=== PATIENT | male | born 1975 | race Two or more races ===

== ENCOUNTER 2018-11-21 23:49 | Emergency (ER) | payer SELFPAY ==
[~2018-11-21] VITALS: Ht 172.7 cm; Wt 82.0 kg
[2018-11-22] MEDS ORDERED: insulin (00:08)
[2018-11-22] MEDS ORDERED: METF500T17 PO (00:08)
--- NOTE | 2018-11-22 00:08 | NUR ---
WILLI ROMERO FROM [facility] [employer] [facility], PER EMT PT'S [id number], PT HAS H/X TYPE 2 DM. B/P-154/98, 96% R/A, HR-90. [employer] AT PT'S BEDSIDE. MONITORS APPLIED, SIDERAILS UP X2, CALL LIGHT WITHIN REACH.
[2018-11-22 00:14] VITALS: BP 149/93
[2018-11-22 00:28] LABS: BASOPHILS % (AUTO) 0 % (0-1); EOSINOPHILS % (AUTO) 0 % (1-7); LYMPHOCYTES % (AUTO) 11 % (22-44); MD NO; MEAN CORPUSCULAR HEMOGLOBIN 28.5 pg (27.5-34.5); MEAN CORPUSCULAR HGB CONC 34.1 g/dL (33.2-36.2); MEAN CORPUSCULAR VOLUME 83.6 fL (81-97); MEAN PLATELET VOLUME 9.4 fL (7.4-10.4); MONOCYTES % (AUTO) 1 % (2-9); NEUTROPHILS # (AUTO) 8.41 x10^3/uL (1.8-6.8); NEUTROPHILS % (AUTO) 88 % (42-75); PLATELET COUNT 263 x10^3/uL (130-400); RED BLOOD COUNT 6.24 x10^6/uL (4.38-5.82); RED CELL DISTRIBUTION WIDTH 12.9 % (9.4-14.8)
--- NOTE | 2018-11-22 00:31 | NUR ---
URINE SAMPLE TAKEN TO LAB
[2018-11-22 00:34] LABS: ALANINE AMINOTRANSFERASE 54 U/L (12-78); ALBUMIN 4.6 g/dL (3.4-5.0); ANION GAP 11 mmol/L (5-15); CALCIUM 9.8 mg/dL (8.5-10.1); CHLORIDE 106 mmol/L (98-107); CREATININE 1.07 mg/dL (0.7-1.3)
[2018-11-22 00:36] LABS: ALKALINE PHOSPHATASE 173 U/L (45-117); BILIRUBIN,TOTAL 0.6 mg/dL (0.2-1.0); TOTAL PROTEIN 8.6 g/dL (6.4-8.2)
[2018-11-22 00:41] LABS: ACETONE, SERUM Negative (Negative)
[2018-11-22] MEDS ORDERED: metFORMIN 500 MG TABLET PO STA (00:45)
[2018-11-22 00:52] LABS: MICROSCOPIC AUTO
[2018-11-22 00:54] LABS: CULTURE INDICATED? NO
== END 2018-11-22 01:13 | disposition home or self-care (01) ==
LOC: ED 11-22 01:07
DX: E11.65 Type 2 diabetes mellitus with hyperglycemia (principal)
CPT/HCPCS: 36415; 80053; 81001; 82010; 82962; 85025; 99283

== ENCOUNTER 2020-07-05 18:31 | Emergency (ER) | payer SELFPAY ==
[~2020-07-05] VITALS: Ht 172.7 cm; Wt 84.8 kg
[~2020-07-05 18:31] MED LIST: METF500T17 PO; insulin
[2020-07-05 19:44] LABS: ANION GAP 8 mmol/L (5-15); CALCIUM 9.6 mg/dL (8.5-10.1); CHLORIDE 97 mmol/L (98-107); CREATININE 1.45 mg/dL (0.7-1.3)
[2020-07-05 19:51] LABS: BASOPHILS % (AUTO) 1 % (0-1); EOSINOPHILS % (AUTO) 1 % (1-7); LYMPHOCYTES % (AUTO) 29 % (22-44); MEAN CORPUSCULAR HEMOGLOBIN 28.6 pg (27.5-34.5); MEAN CORPUSCULAR HGB CONC 34.8 g/dL (33.2-36.2); MEAN PLATELET VOLUME 9.8 fL (7.4-10.4); MONOCYTES % (AUTO) 7 % (2-9); NEUTROPHILS % (AUTO) 62 % (42-75); PLATELET COUNT 261 x10^3/uL (130-400); RED BLOOD COUNT 5.81 x10^6/uL (4.38-5.82)
[2020-07-05 20:04] LABS: MD NO
--- NOTE | 2020-07-05 20:16 | NUR ---
SUPPLY TECHNICIAN: PT FROM LOBBY TO ROOM AT THIS TIME.
[2020-07-05 21:28] LABS: HCT (SEDRATE) 47.7 % (39.2-51.8)
[2020-07-05 21:36] VITALS: BP 135/88
== END 2020-07-05 22:55 | disposition home or self-care (01) ==
LOC: ED 20:59
DX: N28.9 Disorder of kidney and ureter, unspecified (principal); L03.115 Cellulitis of right lower limb; E11.65 Type 2 diabetes mellitus with hyperglycemia; M79.89 Other specified soft tissue disorders; M79.671 Pain in right foot
CPT/HCPCS: 36415; 80048; 85025; 85651; 86140; 99284

== ENCOUNTER 2020-07-08 05:15 | Emergency (ER) | payer SELFPAY ==
[~2020-07-08] VITALS: Ht 172.7 cm; Wt 83.3 kg
[2020-07-08 05:24] VITALS: BP 148/94
[2020-07-08] MEDS ORDERED: LIDOCAINE-MPF 1%, 5ML INFIL ONE (07:00)
[2020-07-08] MEDS ORDERED: LIDOCAINE-MPF 1%, 5ML ONE (07:05)
== END 2020-07-08 07:58 | disposition home or self-care (01) ==
LOC: ED 05:53
DX: L02.611 Cutaneous abscess of right foot (principal); I10 Essential (primary) hypertension; E11.9 Type 2 diabetes mellitus without complications
CPT/HCPCS: 10060; 99282; 99284

== ENCOUNTER 2020-07-14 10:20 | Emergency (ER) | payer SELFPAY ==
[~2020-07-14] VITALS: Ht 172.7 cm; Wt 85.1 kg
[2020-07-14 10:33] VITALS: BP 138/79
--- NOTE | 2020-07-14 10:56 | NUR ---
Pt to room from [facility], ambulatory with steady gait.
== END 2020-07-14 11:41 | disposition home or self-care (01) ==
LOC: ED 11:26
DX: L03.115 Cellulitis of right lower limb (principal); I10 Essential (primary) hypertension; E11.9 Type 2 diabetes mellitus without complications
CPT/HCPCS: 99283